=== PATIENT | male | born 2000 | race Caucasian/White ===

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

== ENCOUNTER → 2025-09-14 | Outpatient (CLI) | payer MEDICAID | LOC: M OUTALCOH 07:34 | PROVIDERS: ATTEND Psychiatry & Neurology Psychiatry | DX: F12.20 Cannabis dependence, uncomplicated (principal); F14.10 Cocaine abuse, uncomplicated; F17.200 Nicotine dependence, unspecified, uncomplicated ==